=== PATIENT | female | born 1965 | race Caucasian/White ===

== ENCOUNTER 2024-05-10 12:47 | Outpatient (CLI) | payer BC, SELFPAY ==
--- OUTSIDE RECORDS SUMMARY | 2024-05-10 12:51 | XMS_ITS ---
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 6-10 How soon after you wake up do you smoke your fir st cigarette? 6-30 minutes Encounters Encounter Location Date Provider Diagnosis [facility] [address] [place] [address] 05/06/2024 Zenon Sharif Menopausal and femal e climacteric states N95.1 ; Sleeping difficulties G47.9 ; Tobacco use Z72.0 and Brain fog R41.89 Assessments Encounter Date Diagnosis (ICD Code) Assessment Notes Treatment Notes Treatment Clinical Notes 05/06/2024 Menopausal and female climacteric states (ICD-10 - N95.1) -HRT labs reviewed in detail today. Results consistent with postmenopause and suboptimal/low testosterone -Discussed treatment options in detail including oral estradiol, oral progesterone, Bijuva (oral estradiol/progesterone pill), transdermal estradiol patches, transdermal compounded testosterone cream, or estradiol/testosterone pellet preparations use of each therapy, common and rare side effects, possible benefits, frequency of use, and cost of each. Would advise against oral estradiol preparations due to pt. age and current tobacco use -At this time desires to start estradiol patches and progesterone for endometrial protection once she completes mammogram next week. We discussed if results are negative/benign can send in Rx for estradiol twice weekly patche 0.0375mg/24hr twice weekly and progesterone 100mg PO caps nightlyat HS. Prefers to hold off on testosterone -Plan for follow up in 4-6 weeks for labs and HRT follow up visit once she starts therapies. Will send Rx as above once I have received and reviewed mammogram 05/06/2024 Sleeping difficulties (ICD-10 - G47.9) 05/06/2024 Tobacco use (ICD-10 - Z72.0) 05/06/2024 Brain fog (ICD-10 - R41.89) 05/06/2024 Other This visit was conducted with the use of audio telecommunications system that permits real time communication between the patient and provider. Patient consent for telephone visit was obtained. Full name and verified at start of call. Originating site: [facility] location Distant site: pt home Start time: 1515 Stop time: 1527 22 min. of time spent in chart prep, reviewing lab results, discussing HRT options and providing counseling on therapies desired, writing orders, and documenting visit note Plan Of Treatment Treatment Notes Assessment Notes Menopausal and female climac teric states -HRT labs reviewed in detail today. Results consistent with postmenopause and suboptimal/low testosterone -Discussed treatment options in detail including oral estradiol, oral progesterone, Bijuva (oral estradiol/progesterone pill), transdermal estradiol patches, transdermal compounded testosterone cream, or estradiol/testosterone pellet preparations use of each therapy, common and rare side effects, possible benefits, frequency of use, and cost of each. Would advise against oral estradiol preparations due to pt. age and current tobacco use -At this time desires to start estradiol patches and progesterone for endometrial protection once she completes mammogram next week. We discussed if results are negative/benign can send in Rx for estradiol twice weekly patche 0.0375mg/24hr twice weekly and progesterone 100mg PO caps nightlyat HS. Prefers to hold off on testosterone -Plan for follow up in 4-6 weeks for labs and HRT follow up visit once she starts therapies. Will send Rx as above once I have received and reviewed mammogram Other This visit was conducted with the use of audio telecommunications system that permits real time communication between the patient and provider. Patient consent for telephone visit was obtained. Full name and verified at start of call. Originating site: [facility] location Distant site: pt home Start time: 1515 Stop time: 1527 22 min. of time spent in chart prep, reviewing lab results, discussing HRT options and providing counseling on therapies desired, writing orders, and documenting visit note Next Appt Details Follow Up: 6 Weeks, Reason: Progress Notes * Debra LIMA ADOB:[birth year] (58 yo F)Acc No.[id number]:05/06/2024 Patient:?Debra LIMA Provider:?RAOUL Dc :1965???Age:58 Y???Sex:Female D ate:05/06/2024 Address:[facility] [address] Pcp:No PCP None Subjective: * Chief Complaints: * ???1. HRT lab f/u from 04/28, needs updated mammo. 2. 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 3. * lm with televisit instructions. * HPI: ???General:? Patient presents today for a telemedicine visit. Patient gives permission to be treated with (tele/audio communication) or (by telephone.). ???*General:? Debra is a 58 year old female here for a HRT consult today. Primary symptoms/complaints include night sweats and sleep difficulties, weight gain, difficulty concentrating/memory loss, decreased energy, foggy thinking, muscle and joint pain. PMH reviewed, notable for tobacco use daily. Did do pellet HRT including estradiol and testosterone x 3 doses in 2021. Stopped due to out of pocket costs. Did get improvement.? LMP: age 43, no vaginal bleeding since menopause UTERUS is PRESENT: Last Pap smear date:?01/01/2017 Last Mammogram date:2008, last found in [facility] Tobacco use:yes, 1/2 ppd of cigarettes PERSONAL HISTORY of DVT, NE, STROKE, LIVER DYSFUNCTION, OR BREAST CANCER: no FAMILY HISTORY OF BREAST CANCER: sister at age 65, maternal grandmother at age 80 FAMILY HISTORY OF DVT OR CVA/NE BEFORE AGE 50: no. * ROS:?All Other Systems:?Review of Systems (ROS)?See HPI for details.? * Medical History:?Tobacco use , Hemorrhoids, Inflammatory polyarthropathy. * Health Program Manager History:?Date of Last Period:?Menopause.? Control: ?Menopause.?Sexual Activity?Currently sexually active.?Sexually Tranmitted Disease (STD)?None.?Denies H/O Abnormal Pap Smear.? * OB History:?GPAL:?.? # 1:?1985, normal spontaneous vaginal delivery (), Male.? # 2:?1986, normal spontaneous vaginal delivery (), Female.? # 3:?1990, normal spontaneous vaginal delivery (), Male.? # 4:?1993, normal spontaneous vaginal delivery (), female.? * Surgical History:?Denies Pas t Surgical History. * Hospitalization/Major Diagno stic Procedure:?Denies Past Hospitalization. * Family History:? Breast cancer- sister and grandmother Diabetes- mother. * Social History:?Tobacco Use:?Tobacco Control (Standard)?Tobacco use:?Current smoker ?How many cigarettes a day do you smoke??6-10 ?How soon after you wake up do you smoke your first cigarette??6-30 minutes ???Drugs/Alcohol:?Drugs?Have you used drugs other than those for medical reasons in the past 12 months??No ?Caffeine?Intake:?1-2 cups per day ???Miscellaneous:?Exercise: yes. * Medications:?None * Allergies:?N.K.D.A. Objective: * Vitals:? * ???Past Orders: ???Lab:ESTRADIOL (Order Date - 04/28/2024) (Collection Date & Time - 04/28/2024 10:12 AM) ? Value Reference Range ?ESTRADIOL <15 - pg/mL ???Lab:FSH (Order Date 04/2024) (Collection Date & Time - 04/28/2024 10:12 AM) ? Value Reference Range ?FSH 66.5 - mIU/mL ???Lab:LH (Order Date 04/2024) (Collection Date & Time - 04/28/2024 10:12 AM) ? Value Reference Range ?LH 35.3 - mIU/mL ???Lab:SEX HORMONE BINDING G LOBULIN (Order Date 04/28/2024) (Collection Date & Time - 04/28/2024 10:12 AM) ? Value Reference Range ?SEX HORMONE BINDING 70 14-73 - nmol/L ???Lab:TESTOSTERONE, TOTAL, LC/MS/MS (Order Date 04/28/2024) (Collection Date & Time - 04/28/2024 10:12 AM) ? Value Reference Range ?TESTOSTERONE, TOTAL, 33 2-45 - ng/dL ???Lab:TESTOSTERONE, FREE (O rder Date 04/28/2024) (Collection Date & Time - 04/28/2024 10:12 AM) ? Value Reference Range ?TESTOSTERONE, FREE 1.7 0 .2-5.0 - pg/mL * Examination: ???*General Examination: ?GENERAL APPEARANCE:?in no acute distress, well developed, well nourished.?PSYCH:? alert, oriented, judgement and insight good.? Assessment: * Assessment: 1.?Menopausal and female cli macteric states - N95.1 (Primary)???2.?Sleeping difficulties - G47.9???3.?Tobacco use - Z72.0???4.?Brain fog - R41.89??? Plan: * Treatment: 2.?Others? Notes: This visit was conducted with the use of audio telecommunications system that permits real time communication between the patient and provider. Patient consent for telephone visit was obtained. Full name and verified at start of call. Originating site: [facility] location Distant site: pt home Start time: 1515 Stop time: 1527 22 min. of time spent in chart prep, reviewing lab results, discussing HRT options and providing counseling on therapies desired, writing orders, and documenting visit note?? * Preventive Medicine:? ??YOUR PREVENTIVE WELLNESS PLAN:?Breast Cancer Screening (Mammogram):?My last mammogram was done on:?05/29/2015 ?Cervical Cancer Screening (Pap Smear):?My last Pap smear was done on:?09/21/2016 ?Osteoporosis Screening (Bone Density Measurement):?My last bone density was done on:?Never, Under 65yr ?Colorectal Cancer Screening:?Last Done Colonoscopy?Never * Follow Up:?6 Weeks * Images: Billing Information: * Visit Code:? 58970 Office Visit, Est Pt., Level 3. Modifiers: 95 * Procedure Codes:? * Sign off status: Completed true * Provider:?RAOUL Dc Date:?04/21 Generated for Eduardo leroy/Naya/Esa on:?05/10/2024 12:51 PM CDT History and Physical Notes * Examination Category Sub-Category Detail Notes *General Examination GENERAL APPEARANCE: in no a cute distress, well developed, well nourished PSYCH: alert, oriented, nena gement and insight good
--- OUTSIDE RECORDS SUMMARY | 2024-05-10 12:52 | XMS_ITS ---
Author Organization [facility] Address [address] [place] [address] Care Team Providers Care Paver Layer Name Role Phone None, No PCP Primary Care Provider Zenon Huggins Unavailable [phone] Allergies No Known Allergies Results Component Value Reference Range Notes ESTRADIOL Reviewed date:05/02/2024 02:55:13 PM Interpretation: Performing Lab:[facility] [address] [facility] CountyMatthew[place]ouzKH[address] Junior Cesar Notes/Report: ESTRADIOL <15 Reference Range Follicular Phase: 19-144 Mid-Cycle: 64-357 Luteal Phase: 56-214 Postmenopausal: < or = 31 Reference range established on post-pubertal patient population. No pre-pubertal reference range established using this assay. For any patients for whom low Estradiol levels are anticipated (e.g. males, pre-pubertal children and hypogonadal/post-menopausal females), the [facility] Estradiol, Ultrasensitive, LCMSMS assay is recommended (order code 13004). Please note: patients being treated with the drug fulvestrant (Faslodex(R)) have demonstrated significant interference in immunoassay methods for estradiol measurement. The cross reactivity could lead to falsely elevated estradiol test results leading to an inappropriate clinical assessment of estrogen status. [facility] order code 24784-Kagbxuuto, Ultrasensitive LC/MS/MS demonstrates negligible cross reactivity with fulvestrant. FSH Reviewed date:05/02/2024 02:55:13 PM Interpretation: Performing Lab:[facility] [address], Matthew AkinsHhjfMG[address] Junior Cesar Notes/Report: FSH 66.5 Reference Range Follicular Phase 2.5-10.2 Mid-cycle Peak 3.1-17.7 Luteal Phase 1.5- 9.1 Postmenopausal 23.0-116.3 LH Reviewed date:05/02/2024 02:55:13 PM Interpretation: Performing Lab:CB, [facility] [address], Matthew AkinsLsupJG[address] Junior Cesar Notes/Report: LH 35.3 Reference Range Follicular Phase 1.9-12.5 Mid-Cycle Peak 8.7-76.3 Luteal Phase 0.5-16.9 Postmenopausal 10.0-54.7 SEX HORMONE BINDING GLOBULIN Reviewed date:05/02/2024 02:55:13 PM Interpretation: Performing Lab:CB, [facility] [address], Matthew CollazoEzrvDN[address] Junior Cesar Notes/Report: SEX HORMONE BINDING GLOBULIN 70 14-73 nmol/L TESTOSTERONE, TOTAL, LC/MS/M S Reviewed date:05/02/2024 02:55:13 PM Interpretation: Performing Lab:[facility], TORCH.sh-[address] [place] [address], [address]TX[address] Jordy Rust MD,PhD Notes/Report: TESTOSTERONE, TOTAL, MS 33 2-45 ng/dL not been cleared or approved by the FDA. This assay has been validated pursuant to the CLIA regulations and is used for clinical purposes. [facility] med fusion [address] [address],[address] [facility] [address] Jordy Rust MD, PhD For additional information, please refer to [email or web address] (This link is being provided for informational/educational purposes only.) (Note) This test was developed and its analytical performance characteristics have been determined by [employer]. 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 Social History Tobacco Use: Social History Observation Description Date Details (start date - stop date) Current Smoker NA - NA Tobacco Control (Standard) Question Answer Notes Tobacco use: Current smoker How many cigarettes a day do you smoke? 6-10 How soon after you wake up do you smoke your fir st cigarette? 6-30 minutes AUDIT-C (Standard) Question Answer Notes Did you have a drink contain ing alcohol in the past year? Yes How often did you have six o r more drinks on one occasion in the past year? 2 to 3 times per week (3 points) How many drinks did you have on a typical day when you were drinking in the past year? 3 or 4 drinks (1 point) How often did you have a dri nk containing alcohol in the past year? Never (0 point) Points 4 Interpretation Positive Problems Problem Type SNOMED Code ICD Code Onset Dates Problem Status W/U Status Risk Notes Problem 70716607 Menopausal symptoms (N95.1) Active confirmed Problem 629406903 Sleeping difficulties (G47.9) Active confirmed Vital Signs Height 67 in 04/28/2024 Weight 171.4 lbs 04/28/2024 Blood pressure systolic 138 mm Hg 04/28/20 24 Blood pressure diastolic 78 mm Hg 024 BMI 26.84 kg/m2 04/28/2024 Encounters Encounter Location Date Provider Diagnosis [facility] [address] [place] [address] 04/28/2024 Zenon Sharif Menopausal symptoms N95.1 ; Sleeping difficulties G47.9 ; Tobacco use Z72.0 ; Other fatigue R53.83 ; Brain fog R41.89 ; Generalized joint pain M25.50 and Menopausal and female climacteric states N95.1 Assessments Encounter Date Diagnosis (ICD Code) Assessment Notes Treatment Notes Treatment Clinical Notes 04/28/2024 Menopausal symptoms (ICD-10 - N95.1) Estradiol replacement in bio-identical forms include: -Transdermal patches which are applied twice weekly to lower abdomen, hip, upper buttocks, arm or shoulder. Patches should never be applied to breast tissue. Apply to clean dry skin and alternate sites every 3 days (twice weekly) -Counseled on application of estradiol patches to clean dry skin. Can apply to lower abdomen, underwear line, or arms/shoulders. Avoid application to breast tissue. Cautioned on possible side effects of therapy including skin irritation, breast tenderness and vaginal bleeding in women with a uterus. Recommend replacement of new patch if patch falls off before replacement is due. Progesterone replacement in bio-identical forms include: -Oral capsules mixed in peanut oil taken once daily at bedtime -Common side effects can be drowsiness which is why it is recommended to take right at bedtime -Indicated to protect thickening of lining of the uterus in women who have a uterus. It is very important that this is taken every night to avoid vaginal bleeding -Counseled on need for progesterone therapy with the initiation of estradiol replacement in women who have a uterus for endometrial protection to reduce the risk for vaginal bleeding and developement of abnormalities of the uterine lining. We discussed the importance of consistent daily dosing and to avoid missing/skipping doses to avoid bleeding and endometrial thickening. Common side effects including drowsiness and mood changes (improved vs. worsening mood) discussed. No allergies/sensitivi ties to peanuts reported. Recommend taking therapy at bedtime to accommodate for common side effect of drowsiness Testosterone replacement in bio-identical forms include: -Transdermal compounded cream that is applied to the skin once daily. Can be applied to the back of each knee, inner thigh, or upper inner arm. Avoid placement on breast tissue. Therapy absorbs over a few hours after application so ideally is applied after bathing so it isn't washed off. Localized hair growth and skin irritation where cream is applied are the most common side effects. -Counseled on application of testosterone cream: You will start transdermal compounded testosterone cream 4mg/0.5gm/2clicks/d ay. A 2 month faxed to [facility] -Apply testosterone cream in AM (morning) -Preferred application to back of knee(s). 1 click behind each knee. -Avoid contact with others to area cream was applied for at least 4 hours after application to prevent transmission of therapy to others -Wash hands after application and store cream is safe place away from young children -Common possible side effects of localized hair growth, skin irritation, possible agitation/irritabil ity can occur with initiation of therapy. If Agitation/irritabil ity occur, I advise decreasing dose in half (1 click) or discontinue if symptoms are severe and notify clinic. -Recommend rechecking testosterone level in 4-6 weeks with Televisit 1 week after labs are done for follow up. Sooner if any concerns before then. -Plan lab draw in PM (afternoon) and make sure cream has been applied that morning of labs to reflect dose of therapy you are using 04/28/2024 Sleeping difficulties (ICD-10 - G47.9) 04/28/2024 Tobacco use (ICD-10 - Z72.0) 04/28/2024 Other fatigue (ICD-10 - R53.83) 04/28/2024 Brain fog (ICD-10 - R41.89) 04/28/2024 Generalized joint pain (ICD-10 - M25.50) 04/28/2024 Menopausal and female climacteric states (ICD-10 - N95.1) 04/28/2024 Other -HRT Labs drawn today. Reasoning for labs discussed in detail -HRT options reviewed in detail, including oral estradiol, oral progesterone, Bijuva (oral estradiol/progester one pill), transdermal estradiol patches, transdermal compounded testosterone cream, or estradiol/testoster one pellet preparations risks/benefits, common side effects, costs and dosing schedule. Would advise against oral estradiol with age and tobacco use and associated increased risk for VTE/CVA/VA. -Counseled on the differences between FDA approved bio-identical hormone replacement, FDA non-hormonal therpies approved for symptoms of menopause, OTC supplements, and non-FDA approved compounded bio-idential hormone replacement. -Patient education and informed consent in HRT packet completed and signed today. -Counseled on associated increased risks for VA, CVA, VTE, and breast cancer with some forms of hormone replacement therapy. HRT could decrease associated lifetime risks, specifically with the use of bioidentical hormones including estradiol, progesterone, and/or testosterone preparations. Bioidentical hormonal therapies have not been shown to significantly increase risks for VA, CVA, VTE, and/or breast cancer, but do not guarantee prevention of developing these risks if used. senior care associated risks of non-FDA approved bioidential compounded hormones are not known. Copies given of signed forms. -Discussed potential side effects of pellet therapy including fluid retention, swelling, breast tenderness, nipple sensitivity, uterine spotting, mood swings and irritability, acne, hair loss and/or hair growth. -Breast cancer screening policy reviewed and printed handout given. Mammogram NEEDS TO BE UPDATED AND NEGATIVE/BENIGN BEFORE HRT WILL BE RECOMMNEDED. HAS ONLY HAD 1 AT [facility] IN 2008. PLANS TO GO BACK TO [facility] FOR REPEAT MAMMO BEFORE FOLLOW UP IF ABLE -Annual mammogram, clinical breast exam and JOB LITHOGRAPHER exams recommended -Plan for follow-up in 1-2 weeks to review lab results and proceed with treatment options if desired and indicated -Total of 30 minutes was spent reviewing history, concerns, evaluation, and management options in detail Plan Of Treatment Treatment Notes Assessment Notes Menopausal symptoms Estradiol replacement in bio-identical forms include: -Transdermal patches which are applied twice weekly to lower abdomen, hip, upper buttocks, arm or shoulder. Patches should never be applied to breast tissue. Apply to clean dry skin and alternate sites every 3 days (twice weekly) -Counseled on application of estradiol patches to clean dry skin. Can apply to lower abdomen, underwear line, or arms/shoulders. Avoid application to breast tissue. Cautioned on possible side effects of therapy including skin irritation, breast tenderness and vaginal bleeding in women with a uterus. Recommend replacement of new patch if patch falls off before replacement is due. Progesterone replacement in bio-identical forms include: -Oral capsules mixed in peanut oil taken once daily at bedtime -Common side effects can be drowsiness which is why it is recommended to take right at bedtime -Indicated to protect thickening of lining of the uterus in women who have a uterus. It is very important that this is taken every night to avoid vaginal bleeding -Counseled on need for progesterone therapy with the initiation of estradiol replacement in women who have a uterus for endometrial protection to reduce the risk for vaginal bleeding and developement of abnormalities of the uterine lining. We discussed the importance of consistent daily dosing and to avoid missing/skipping doses to avoid bleeding and endometrial thickening. Common side effects including drowsiness and mood changes (improved vs. worsening mood) discussed. No allergies/sensitivities to peanuts reported. Recommend taking therapy at bedtime to accommodate for common side effect of drowsiness Testosterone replacement in bio-identical forms include: -Transdermal compounded cream that is applied to the skin once daily. Can be applied to the back of each knee, inner thigh, or upper inner arm. Avoid placement on breast tissue. Therapy absorbs over a few hours after application so ideally is applied after bathing so it isn't washed off. Localized hair growth and skin irritation where cream is applied are the most common side effects. -Counseled on application of testosterone cream: You will start transdermal compounded testosterone cream 4mg/0.5gm/2clicks/day. A 2 month faxed to [facility] -Apply testosterone cream in AM (morning) -Preferred application to back of knee(s). 1 click behind each knee. -Avoid contact with others to area cream was applied for at least 4 hours after application to prevent transmission of therapy to others -Wash hands after application and store cream is safe place away from young children -Common possible side effects of localized hair growth, skin irritation, possible agitation/irritability can occur with initiation of therapy. If Agitation/irritability occur, I advise decreasing dose in half (1 click) or discontinue if symptoms are severe and notify clinic. -Recommend rechecking testosterone level in 4-6 weeks with Televisit 1 week after labs are done for follow up. Sooner if any concerns before then. -Plan lab draw in PM (afternoon) and make sure cream has been applied that morning of labs to reflect dose of therapy you are using Other -HRT Labs drawn today. Reasoning for labs discussed in detail -HRT options reviewed in detail, including oral estradiol, oral progesterone, Bijuva (oral estradiol/progesterone pill), transdermal estradiol patches, transdermal compounded testosterone cream, or estradiol/testosterone pellet preparations risks/benefits, common side effects, costs and dosing schedule. Would advise against oral estradiol with age and tobacco use and associated increased risk for VTE/CVA/VA. -Counseled on the differences between FDA approved bio-identical hormone replacement, FDA non-hormonal therpies approved for symptoms of menopause, OTC supplements, and non-FDA approved compounded bio-idential hormone replacement. -Patient education and informed consent in HRT packet completed and signed today. -Counseled on associated increased risks for VA, CVA, VTE, and breast cancer with some forms of hormone replacement therapy. HRT could decrease associated lifetime risks, specifically with the use of bioidentical hormones including estradiol, progesterone, and/or testosterone preparations. Bioidentical hormonal therapies have not been shown to significantly increase risks for VA, CVA, VTE, and/or breast cancer, but do not guarantee prevention of developing these risks if used. oysterman associated risks of non-FDA approved bioidential compounded hormones are not known. Copies given of signed forms. -Discussed potential side effects of pellet therapy including fluid retention, swelling, breast tenderness, nipple sensitivity, uterine spotting, mood swings and irritability, acne, hair loss and/or hair growth. -Breast cancer screening policy reviewed and printed handout given. Mammogram NEEDS TO BE UPDATED AND NEGATIVE/BENIGN BEFORE HRT WILL BE RECOMMNEDED. HAS ONLY HAD 1 AT [facility] IN 2008. PLANS TO GO BACK TO [facility] FOR REPEAT MAMMO BEFORE FOLLOW UP IF ABLE -Annual mammogram, clinical breast exam and JOB LITHOGRAPHER exams recommended -Plan for follow-up in 1-2 weeks to review lab results and proceed with treatment options if desired and indicated -Total of 30 minutes was spent reviewing history, concerns, evaluation, and management options in detail Next Appt Details Follow Up: 1 Week, Reason: Progress Notes * Debra LIMA ADOB:[birth year] (58 yo F)Acc No.[id number]:04/28/2024 Patient:?Debra LIMA Provider:?RAOUL Dc :1965???Age:58 Y???Sex:Female D ate:04/28/2024 Address:[facility] [address] Pcp:No PCP None Subjective: * Chief Complaints: * ???1. HORMONES /CONSULT. 2. LMP: menopause. 3. MAMMO: 2015. 4. SX: sweating, hot flashes, not sleeping, energy level is good. 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 6. * Lm to come in early for ppwk.. * HPI: ???Depression Screening:?PHQ-9?Little interest or pleasure in doing things?More than half the days ?Feeling down, depressed, or hopeless?Not at all ?Trouble falling or staying asleep, or sleeping too much?Nearly every day ?Feeling tired or having little energy?More than half the days ?Poor appetite or overeating?Not at all ?Feeling bad about yourself or that you are a failure, or have let yourself or your family down?Not at all ?Trouble concentrating on things, such as reading the newspaper or watching television?Not at all ?Moving or speaking so slowly that other people could have noticed; or the opposite, being so fidgety or restless that you have been moving around a lot more than usual?Not at all ?Thoughts that you would be better off or of hurting yourself in some way?Not at all ?Total Score?7 ?Interpretation?Mild Depression ???*General:? Debra is a 58 year old [...] date:?01/01/2017 Last Mammogram date:2008, last [facility] in [facility] Tobacco use:yes, 1/2 ppd of cigarettes PERSONAL HISTORY of DVT, VA, STROKE, LIVER DYSFUNCTION, OR BREAST CANCER: no FAMILY HISTORY OF BREAST CANCER: sister at age 65, maternal grandmother at age 80 FAMILY HISTORY OF DVT OR CVA/VA BEFORE AGE 50: no. * ROS:?All Other Systems:?Review of Systems (ROS)?See HPI for details.? * Medical History:?Tobacco use , Hemorrhoids, Inflammatory polyarthropathy. 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 Control: ?Menopause.?Sexual Activity?Currently [...] months??No ?Caffeine?Intake:?1-2 cups per day ???Miscellaneous:?Exercise: yes. ???Drug/Alcohol:?AUDIT-C (Standard)?Did you have a drink containing alcohol in the past year??Yes ?How often did you have six or more drinks on one occasion in the past year??2 to 3 times per week (3 points) ?How many drinks did you have on a typical day when you were drinking in the past year??3 or 4 drinks (1 point) ?How often did you have a drink containing alcohol in the past year??Never (0 point) ?Points?4 ?Interpretation?Positive * Medications:?None * Allergies:?N.K.D.A. Objective: * Vitals:?Ht: 67 in, Wt:171.4l bs, BP:138/78mm Hg, BMI:26.84Index. * Examination: ???*General Examination: ?GENERAL APPEARANCE:?in no acute distress, well developed, well nourished.?PSYCH:?alert, oriented, judgement and insight good, mood/affect full range, speech clear.? Assessment: * Assessment: 1.?Menopausal symptoms - N95 .1 (Primary)???2.?Sleeping difficulties - G47.9???3.?Tobacco use - Z72.0???4.?Other fatigue - R53.83???5.?Brain fog - R41.89???6.?Generalized joint pain - M25.50???7.?Menopausal and female climacteric states - N95.1??? Plan: * Treatment: 2.?Menopausal and female cli macteric states?LAB: ESTRADIOL ? Value Reference Range ?ESTRADIOL <15 - pg/mL * Here are your lab results fo r your upcoming visit. See you then. Zenon Sharif 05/02/2024 02:55:09 PM CDT >This lab was reviewed by Zenon Sharif on 05/02/2024 at 14:55 PM CDT ?LAB: FSH* ? Value Reference Range ?FSH 66.5 - mIU/mL * Here are your lab results fo r your upcoming visit. See you then. Zenon Sharif 05/02/2024 02:55:09 PM CDT >This lab was reviewed by Zenon Sharif on 05/02/2024 at 14:55 PM CDT ?LAB: LH* ? Value Reference Range ?LH 35.3 - mIU/mL * Here are your lab results fo r your upcoming visit. See you then. Zenon Sharif 05/02/2024 02:55:09 PM CDT >This lab was reviewed by Zenon Sharif on 05/02/2024 at 14:55 PM CDT ?LAB: SEX HORMONE BINDING GLOBULIN* ? Value Reference Range ?SEX HORMONE BINDING 70 14- 73 - nmol/L * Here are your lab results fo r your upcoming visit. See you then. Zenon Sharif 05/02/2024 02:55:09 PM CDT >This lab was reviewed by Zenon Sharif on 05/02/2024 at 14:55 PM CDT ?LAB: TESTOSTERONE, TOTAL, LC/MS/MS* ? Value Reference Range ?TESTOSTERONE, TOTAL, 33 2- 45 - ng/dL * Here are your lab results fo r your upcoming visit. See you then. Zenon Sharif 05/02/2024 02:55:09 PM CDT >This lab was reviewed by Zenon Sharif on 05/02/2024 at 14:55 PM CDT ?LAB: TESTOSTERONE, FREE* ? Value Reference Range ?TESTOSTERONE, FREE 1.7 0.2- 5.0 - pg/mL * Here are your lab results fo r your upcoming visit. See you then. Zenon Sharif 05/02/2024 02:55:09 PM CDT >This lab was reviewed by Zenon Sharif on 05/02/2024 at 14:55 PM CDT 3.?Others? Notes: -HRT Labs drawn today. Reasoning for labs discussed in detail -HRT options reviewed in detail, including oral estradiol, oral progesterone, Bijuva (oral estradiol/progesterone pill), transdermal estradiol patches, transdermal compounded testosterone cream, or estradiol/testosterone pellet preparations risks/benefits, common side effects, costs and dosing schedule. Would advise against oral estradiol with age and tobacco use and associated increased risk for VTE/CVA/VA. -Counseled on the differences between FDA approved bio-identical hormone replacement, FDA non-hormonal therpies approved for symptoms of menopause, OTC supplements, and non-FDA approved compounded bio-idential hormone replacement. -Patient education and informed consent in HRT packet completed and signed today. -Counseled on associated increased risks for VA, CVA, VTE, and breast cancer with some forms of hormone replacement therapy. HRT could decrease associated lifetime risks, specifically with the use ofbioidentical hormones including estradiol, progesterone, and/or testosterone preparations. Bioidentical hormonal therapies have not been shown to significantly increase risks for VA, CVA, VTE, and/orbreast cancer, but do not guarantee prevention of developing these risks if used. oysterman associated risks of non-FDA approved bioidential compounded hormones are not known. Copies given of signed forms. -Discussed potential side effects of pellet therapy including fluid retention, swelling, breast tenderness, nipple sensitivity, uterine spotting, mood swings and irritability, acne, hair loss and/or hair growth. -Breast cancer screening policy reviewed and printed handout given. Mammogram NEEDS TO BE UPDATED AND NEGATIVE/BENIGN BEFORE HRT WILL BE RECOMMNEDED. HAS ONLY HAD 1 AT [facility] IN 2008. PLANS TO GO BACK TO [facility] FOR REPEAT MAMMO BEFORE FOLLOW UP IF ABLE -Annual mammogram, clinical breast exam and JOB LITHOGRAPHER exams recommended -Plan for follow-up in 1-2 weeks to review lab results and proceed with treatment options if desired and indicated -Total of 30 minutes was spent reviewing history, concerns, evaluation, and management options in detail?? * Procedure Codes:?05109 BRIEF EMOTIONAL/BEHAV ASSMT, 79693 ASSAY OF ESTRADIOL, Modifiers: 90 , 53975 GONADOTROPIN (FSH), Modifiers: 90 , 14283 GONADOTROPIN (LH), Modifiers: 90 , 10762 ASSAY OF SEX HORMONE GLOBUL, Modifiers: 90 , 13210 ASSAY OF TESTOSTERONE, Modifiers: 90 , 51337 ASSAY OF TOTAL TESTOSTERONE, Modifiers: 90 , 83154 VENIPUNCT, ROUTINE* * Preventive Medicine:? ??YOUR PREVENTIVE WELLNESS PLAN:?Breast Cancer Screening (Mammogram):?My last mammogram was done on:?05/29/2015 ?Cervical Cancer Screening (Pap Smear):?My last Pap smear was done on:?09/21/2016 ?Osteoporosis Screening (Bone Density Measurement):?My last bone density was done on:?Never, Under 65yr ?Colorectal Cancer Screening:?Last Done Colonoscopy?Never * Follow Up:?1 Week * Images: Billing Information: * Visit Code:? 82732 Office Visit, New Pt., Level 3. * Procedure Codes:? 13628 BRIEF EMOTIONAL/BEHAV ASSMT. 56775 ASSAY OF ESTRADIOL. Modifiers: 90 32643 GONADOTROPIN (FSH). Modifiers: 90 40399 GONADOTROPIN (LH). Modifiers: 90 53387 ASSAY OF SEX HORMONE GLOBUL. Modifiers: 90 65100 ASSAY OF TESTOSTERONE. Modifiers: 90 65325 ASSAY OF TOTAL TESTOSTERONE. Modifiers: 90 86071 VENIPUNCT, ROUTINE*. * Sign off status: Completed Addendum: * ? true * Provider:?RAOUL Dc Date:?04/2024 Generated for Eduardo leroy/Naya/Esa on:?05/10/2024 12:51 PM CDT History and Physical Notes * HPI (History of Present Illness) Category Sub-Category Detail Notes Depression Screening PHQ-9 Little inte rest or pleasure in doing things: More than half the days Feeling down, depressed, or hopeless: No t at all Trouble falling or staying asleep, or sl eeping too much: Nearly every day Feeling tired or having little energy: M ore than half the days Poor appetite or overeating: Not at all Feeling bad about yourself o r that you are a failure, or have let yourself or your family down: Not at all Trouble concentrating on thi ngs, such as reading the newspaper or watching television: Not at all Moving or speaking so slowly that other people could have noticed; or the opposite, being so fidgety or restless that you have been moving around a lot more than usual: Not at all Thoughts that you would be b faheem off or of hurting yourself in some way: Not at all Total Score: 7 Interpretation: Mild Depression Examination Category Sub-Category Detail Notes *General Examination GENERAL APPEARANCE: in no a cute distress, well developed, well nourished PSYCH: alert, oriented, nena gement and insight good, mood/affect full range, speech clear
--- OUTSIDE RECORDS SUMMARY | 2024-05-10 12:52 | XMS_ITS ---
Author Organization [facility] Address [address] [place] [address] Care Team Providers Care Cake Inspector Name Role Phone None, No PCP Primary Care Provider Zenon Huggins [phone] Encounters Encounter Location Date Provider Diagnosis [facility] [address] [place] [address] 04/28/2024 Zenon Sharif Plan Of Treatment No Information Progress Notes * Debra LIMA ADOB:[birth year] (58 yo F)Acc No.[id number]:04/28/2024 Patient:?SIDNEY Debra Perales Provider:?RAOUL Dc :1965???Age:58 Y???Sex:Female D ate:04/28/2024 Address:[address], [address], [facility] Pcp:No PCP None Subjective: * Chief Complaints: * ??? * Medical History:? Objective: * Vitals:? Assessment: Plan: * Treatment: Care Plan: * Problems:? * Images: Billing Information: * Visit Code:? * Procedure Codes:? * Electronic signature of Nadya Sharif on 05/10/2024 at 12:51 PM CDT Sign off status: Pending * Provider:?RAOUL Dc Date:?04/2024 Generated for Eduardo leroy/Naya/Esa on:?05/10/2024 12:51 PM CDT
--- OUTSIDE RECORDS SUMMARY | 2024-05-10 12:52 | XMS_ITS | Patient Health Record ---
Author Organization [facility] Address [address] [place] [address] Care Team Providers Care Director Of Religious Activities Name Role Phone None, No PCP Primary Care Provider Zenon Huggins Unavailable [phone] Allergies No Known Allergies Results Component Value Reference Range Notes ESTRADIOL Reviewed date:05/02/2024 02:55:13 PM Interpretation: Performing Lab:[facility] [employer] [address] branchFlwrJN[address] Junior Cesar Notes/Report: ESTRADIOL <15 Reference Range Follicular Phase: 19-144 Mid-Cycle: 64-357 Luteal Phase: 56-214 Postmenopausal: < or = 31 Reference range established on post-pubertal patient population. No pre-pubertal reference range established using this assay. For any patients for whom low Estradiol levels are anticipated (e.g. males, pre-pubertal children and hypogonadal/post-menopausal females), the [facility] Estradiol, Ultrasensitive, LCMSMS assay is recommended (order code 12316). Please note: patients being treated with the drug fulvestrant (Faslodex(R)) have demonstrated significant interference in immunoassay methods for estradiol measurement. The cross reactivity could lead to falsely elevated estradiol test results leading to an inappropriate clinical assessment of estrogen status. [facility] order code 12156-Obccvsfwk, Ultrasensitive LC/MS/MS demonstrates negligible cross reactivity with fulvestrant. FSH Reviewed date:05/02/2024 02:55:13 PM Interpretation: Performing Lab:[facility]-[address], Matthew CollazoPfyeDO[address] Junior Cesar Notes/Report: FSH 66.5 Reference Range Follicular Phase 2.5-10.2 Mid-cycle Peak 3.1-17.7 Luteal Phase 1.5- 9.1 Postmenopausal 23.0-116.3 LH Reviewed date:05/02/2024 02:55:13 PM Interpretation: Performing Lab:[facility], Matthew CollazoOjjpCK[address] Junior Cesar Notes/Report: LH 35.3 Reference Range Follicular Phase 1.9-12.5 Mid-Cycle Peak 8.7-76.3 Luteal Phase 0.5-16.9 Postmenopausal 10.0-54.7 SEX HORMONE BINDING GLOBULIN Reviewed date:05/02/2024 02:55:13 PM Interpretation: Performing Lab:[facility], Matthew CollazoQishMQ[address] Junior Cesar Notes/Report: SEX HORMONE BINDING GLOBULIN 70 14-73 nmol/L TESTOSTERONE, TOTAL, LC/MS/M S Reviewed date:05/02/2024 02:55:13 PM Interpretation: Performing Lab:[facility], [facility]-AdsStzdxp[address] [place] [address], [facility] [address], CihwdpcsfvCS[address] Jordy Rust MD,PhD Notes/Report: TESTOSTERONE, TOTAL, MS 33 2-45 ng/dL not been cleared or approved by the FDA. This assay has been validated pursuant to the CLIA regulations and is used for clinical purposes. [facility] med fusion [address] [address],[address] [facility] [address] Jordy Rust MD, PhD For additional information, please refer to [email or web address].[employer] .Star[employer] Interactive/faq/TotalTestosteroneLCMSMS (This link is being provided for informational/educational purposes only.) (Note) This test was developed and its analytical performance characteristics have been determined by [employer]. It has TESTOSTERONE, FREE Reviewed date:05/02/2024 02:55:13 PM Interpretation: Performing Lab:[facility], [facility]-[address] [address], [address], EgvbytdqhjKP[address] Jordy Rust MD,PhD Notes/Report: TESTOSTERONE, FREE 1.7 0.2-5.0 pg/mL MD med fusion [address] [facility] [address] [place] [address] Jordy Rust MD, PhD Reason For Referral No Information Social History Tobacco Use: Social History Observation Description Date Details (start date - stop date) Current Smoker NA - NA Tobacco Control (Standard) Question Answer Notes Tobacco use: Current smoker How many cigarettes a day do you smoke? 6-10 How soon after you wake up do you smoke your fir st cigarette? 6-30 minutes Problems Problem Type SNOMED Code ICD Code Onset Dates Problem Status W/U Status Risk Notes Problem 31691812 Menopausal symptoms (N95.1) Active confirmed Problem 161481697 Sleeping difficulties (G47.9) Active confirmed Vital Signs Blood pressure diastolic 78 mm Hg 04/28/2024 Height 67 in 04/28/2024 Blood pressure systolic 138 mm Hg 04/28/2024 Weight 171.4 lbs 04/28/2024 BMI 26.84 kg/m2 04/28/2024 Encounters Encounter Location Date Provider Diagnosis [address] [address] 04/28/2024 Zenon Sharif [facility] [address] [place] [address] 04/28/2024 Zenon Sharif Menopausal symptoms N95.1 ; Sleeping difficulties G47.9 ; Tobacco use Z72.0 ; Other fatigue R53.83 ; Brain fog R41.89 ; Generalized joint pain M25.50 and Menopausal and female climacteric states N95.[address] [address] 05/06/2024 Zenon Sharif Menopausal and femal e [...] cream 4mg/0.5gm/2clicks/day. A 2 month faxed to [facility] -Apply testosterone cream in AM (morning) [...] using 04/28/2024 Sleeping difficulties (ICD-10 - G47.9) 05/06/2024 Menopausal and female climacteric states (ICD-10 [...] mammogram 05/06/2024 Sleeping difficulties (ICD-10 - G47.9) 04/28/2024 Tobacco use (ICD-10 - Z72.0) 05/06/2024 Tobacco use (ICD-10 - Z72.0) 04/28/2024 Other fatigue (ICD-10 - R53.83) 05/06/2024 Brain fog (ICD-10 - R41.89) 04/28/2024 Brain fog (ICD-10 - R41.89) 04/28/2024 [...] tobacco use and associated increased risk for VTE/CVA/[place]. -Counseled on the differences between FDA approved bio-identical hormone replacement, FDA non-hormonal therpies approved for symptoms of menopause, OTC supplements, and non-FDA approved compounded bio-idential hormone replacement. -Patient education and informed consent in HRT packet completed and signed today. -Counseled on associated increased risks for [place], CVA, VTE, and breast cancer with some forms of hormone replacement therapy. HRT could decrease associated lifetime risks, specifically with the use of bioidentical hormones including estradiol, progesterone, and/or testosterone preparations. Bioidentical hormonal therapies have not been shown to significantly increase risks for [place], CVA, VTE, and/or breast cancer, but do not guarantee prevention of developing these risks if used. penitentiary associated risks of non-FDA approved bioidential compounded [...] BE RECOMMNEDED. HAS ONLY HAD 1 AT [facility] IN 2008. PLANS TO GO BACK TO [place] FOR REPEAT MAMMO BEFORE FOLLOW UP IF ABLE -Annual mammogram, clinical breast exam and GOLD PROSPECTOR exams recommended -Plan for follow-up in 1-2 weeks to review lab results and proceed with treatment options if desired and indicated -Total of 30 minutes was spent reviewing history, concerns, evaluation, and management options in detail 05/06/2024 Other This visit was conducted with the use of audio telecommunications system that permits real time communication between the patient and provider. Patient consent for telephone visit was obtained. Full name and verified at start of call. Originating site: [facility] location Distant site: home Start time: 1515 Stop time: 1527 22 min. of time spent in chart prep, reviewing lab results, discussing HRT options and providing counseling on therapies desired, writing orders, and documenting visit note Plan Of Treatment No Information Insurance Providers Payer Name Payer Address Payer Phone Subscriber Number Group Number Insured Name Patient Relationship to Insured Coverage Start Date Coverage End Date BCBS - (Client Bill) [address] [place] FUNEZ [id number] Derba Lima Self - patient is the insured Medical (General) History Medical History History ICD Code tobacco use hemorrhoids inflammatory polyarthropathy
--- NOTE | 2024-05-10 13:00 | CRLHL7_ITS ---
For Patients: As a result of the Century Cures Act, medical imaging exams and procedure reports are released immediately into your electronic medical record. You may view this report before your referring provider. If you have questions, please contact your health care provider. BILATERAL SCREENING MAMMOGRAM WITH COMPUTER-AIDED DETECTION AND TOMOSYNTHESIS TECHNIQUE: CC and MLO views were obtained. These mammographic images have been obtained using full-field digital technique. These mammographic images were interpreted with the benefit of computer-aided detection. Breast tomosynthesis was used in this interpretation. COMPARISON FILM: 01/06/17. FINDINGS: There are scattered areas of fibroglandular density. IMPRESSION: There is no radiographic evidence for malignancy. ASSESSMENT: BI-RADS Category 1: Negative RECOMMENDATION: Routine screening mammogram in 1 year. A lay language report of this examination will be provided to the patient. DIMA GARCIA M.D. Diagnostic Radiologist [email or web address] Transcribed: 3:[address]/Dictated by: Dima Garcia MD @ 05/11/2024 10:56:00 AM (Electronically Signed)
== END 2024-05-10 12:48 | disposition home or self-care (01) ==
PROVIDERS: PCP Nurse Practitioner; Visit Provider Nurse Practitioner
DX: Z12.31 Encounter for screening mammogram for malignant neoplasm of breast (principal)
CPT/HCPCS: 77063; 77067

== ENCOUNTER 2025-02-15 07:54 | Day surgery (SDC) | payer BC, SELFPAY ==
[2025-02-15] VITALS (17 sets, daily range): BP systolic 107–138; BP diastolic 62–86; PULSE 71–91; RESP 14–16; TEMP 35.9–36.6; O2SAT 92–98; BMI 28.3
[2025-02-15] MEDS: LACTATED RINGERS 1000 ML 1,000 ML 100 ML IV ×2 (08:45→11:15)
[2025-02-15] MEDS: SODIUM CHLORIDE 0.9 % (FLUSH) 10 ML SYRINGE IVF (08:45)
--- NOTE | 2025-02-15 09:02 | W.PM.H&PU ---
History & Physical Update History & Physical Update H&P Reviewed and patient assessed: No changes noted
[2025-02-15] MEDS: fentaNYL 100 MCG/2 ML inj IVP (09:38)
[2025-02-15] MEDS: MIDAZOLAM HCL 1 MG/ML inj IVP (09:38)
--- NOTE | 2025-02-15 09:45 | SUR.PREOP ---
TIME?OUT:?0936 PT/RN/MDA?VERIFICATION?OF?SURGICAL?SITE,?PROCEDURE,?AND?CONSENT OBTAINED?PRIOR?TO?INVASIVE?PROCEDURE.
--- NOTE | 2025-02-15 09:51 | P.NB_ITS ---
Nerve Block Nerve Block Time Seen by Provider: 09:42 Date Seen: 02/15/25 Type of block requested by surgeon for post-operative analgesia: supraclavicular Side: right Time out performed: Yes Verification of patient name: Yes Verification of date of : Yes Site marking: site marked Name of person performing procedure: Zay Continuous monitoring Was continuous monitoring of O2 sat, B/P, monitor car operator, recorded every 15 minutes?: Yes Procedure Checklist: sterile prep, needles and gloves Ultrasound guided. Images saved: Yes Medications given in 5ml increments after negative aspiration: Ropivicaine %: 0.5 mL: 20 Needle gauge: 22 Precedex (mcg): 25 Patient tolerated procedure well: Yes Block Charges Block Charge (with Pro Fee): Brachial Plexus Use of Ultrasound Machine for Block: Yes- US Guidance/pain block
--- NOTE | 2025-02-15 09:52 | W.ANESCHARGE ---
Anesthesia Charges Start Date/Time Anesthesia Start Date: 02/15/25 Anesthesia Start Time: 09:51 Stop Date/Time Anesthesia Stop Date: 02/15/25 Anesthesia Stop Time: 12:28 Coding CPT Codes CPT Codes: ANESTH SURGERY OF SHOULDER - 21313 ([id number]) P1 - NORMAL HEALTHY PATIENT, QK - RADIOTELEPHONE TECHNICAL OPERATOR 2-4 CNCRNT ANES PROC, QX - PLATE CONDITIONER SVVenice W/ MED DIRECTION
--- NOTE | 2025-02-15 09:52 | P.ANES_ITS ---
Anesthesia Charges Start Date/Time Anesthesia Start Date: 02/15/25 Anesthesia Start Time: 09:51 Stop Date/Time Anesthesia Stop Date: 02/15/25 Anesthesia Stop Time: 12:28 Coding CPT Codes CPT Codes: ANESTH SURGERY OF SHOULDER - 67624 ([id number]) P1 - NORMAL HEALTHY PATIENT, QK - VOCATIONAL REHABILITATION COUNSELOR 2-4 CNCRNT ANES PROC, QX - HYDRAMATIC MECHANIC SVVenice W/ MED DIRECTION
[2025-02-15] MEDS: CEFAZOLIN 1 GM inj IVP (10:12)
--- NOTE | 2025-02-15 10:14 | P.ANES_ITS ---
Anesthesia Charges Start Date/Time Anesthesia Start Date: 02/15/25 Anesthesia Start Time: 09:51 Stop Date/Time Anesthesia Stop Date: 02/15/25 Coding CPT Codes CPT Codes: ANESTH SURGERY OF SHOULDER - 94731 ([id number]) P1 - NORMAL HEALTHY PATIENT, QX - PETROLEUM REFINERY LABORER MARY W/ MED DIRECTION, QY - MEDICALLY DIRECTED PETROLEUM REFINERY LABORER
--- NOTE | 2025-02-15 10:14 | W.ANESCHARGE ---
Anesthesia Charges Start Date/Time Anesthesia Start Date: 02/15/25 Anesthesia Start Time: 09:51 Stop Date/Time Anesthesia Stop Date: 02/15/25 Coding CPT Codes CPT Codes: ANESTH SURGERY OF SHOULDER - 10701 ([id number]) P1 - NORMAL HEALTHY PATIENT, QX - BRAND STRATEGIST AMRY W/ MED DIRECTION, QY - MEDICALLY DIRECTED BRAND STRATEGIST
[2025-02-15] MEDS: EPINEPHrine 1 MG in SODIUM CHLORIDE IRRIG SOLUTION 3,000 ML 9003 MG IRRIGATION ×6 (10:22→11:50)
--- NOTE | 2025-02-15 12:12 | PM.ORPRC ---
Procedure Note Date of procedure: 02/15/25 Procedure: PREOPERATIVE DIAGNOSES: 1. Right shoulder rotator cuff tear - full-thickness supraspinatus and infraspinatus with retraction to the glenoid 2. Right shoulder labral tearing 3. Right shoulder subacromial impingement syndrome. POSTOPERATIVE DIAGNOSES: 1. Right shoulder rotator cuff tear - full-thickness supraspinatus and infraspinatus with retraction to the glenoid 2. Right shoulder labral tearing 3. Right shoulder long head of biceps partial-thickness tearing 4. Right shoulder ossicle/bone anterior/superior humeral head prominence 5. Right shoulder subacromial impingement syndrome. NAME OF OPERATION: 1. Right shoulder arthroscopic rotator cuff repair - full-thickness supraspinatus/infraspinatus 2. Right shoulder arthroscopic extensive glenohumeral debridement including debridement of labral tissue, long head of the biceps tendon tissue, and humeral head bone to 3. Right shoulder arthroscopic bursectomy, subacromial decompression/partial acromioplasty. SURGEON: Noé Porras MD FAMILY SERVICE ASSISTANT: Bossman Richardson PA-C. Of note, a skilled physician's assistant was critical for this case to aide in patient positioning, suture manipulation, arm positioning, instrument positioning, and closure. ANESTHESIA: General plus preoperative supraclavicular block. EBL: 25 mL IMPLANTS: Arthrex 5.5 mm BioComposite SwiveLock suture anchor (x3); Arthrex 5.5 mm BioComposite corkscrew suture anchor (x1); Arthrex 2.6 mm standard FiberTak RC (x1) COMPLICATIONS: None evident INDICATIONS: The patient is a pleasant, 59-year-old female who has experienced right shoulder pain that has been increasing in recent time. Physical exam and imaging were consistent with a rotator cuff tear. Given their findings, as well as the weakness and pain, and inadequate response to nonoperative management, recommendation was made for surgery. FINDINGS: Exam under anesthesia revealed stable shoulder with excellent range of motion. The diagnostic arthroscopy revealed relatively healthy articular cartilage on the glenohumeral joint. The Subscapularis tendon was intact with the strong attachment at the insertion. The long head of the biceps tendon was intact with low-grade partial-thickness tearing at the superior edge of the humeral head articulation. Properly located within the bicipital groove. The superior rotator cuff tendon was found to be torn full-thickness including the supraspinatus and infraspinatus with retraction to the glenoid. It was somewhat of a reverse L-shaped type tear with the majority tendon falling posteriorly. This warranted marginal convergence sutures eventually. The labrum was torn in the anterior and superior and to some degree posterior aspects. In addition, an atypical bony prominence was seen over the anterosuperior humeral head just lateral to the bicipital groove. No loose bodies were identified within the pouch or subscapularis recess. PROCEDURE: Following a thorough discussion of risks, benefits, and alternatives, consent was obtained and the right shoulder was marked. The patient was brought to the operating room and placed supine on the operating table. Induction of anesthesia was completed after preoperative supraclavicular block was administered in preop holding. Appropriate time out was performed identifying proper patient, site, and procedure. 2 g IV Ancef was administered within 1 hour of incision preoperatively. The right upper extremity was prepped and draped in the appropriate sterile fashion using ChloraPrep prep. This was after the patient was positioned in the beach chair with their head in neutral alignment and all bony prominences well padded. The shoulder was insufflated with 20mL of normal saline via an 18g spinal needle from a posterior approach. An 11 blade skin incision allowed a blunt trochar to be inserted and diagnostic arthroscopy to be performed with the findings as noted above. An anterior portal was established with an outside in technique. This allowed the probe to be inserted and confirm the diagnostic arthroscopic findings. The shaver was then inserted and allowed debridement of the anterior and superior as well as posterior labrum. Long of the biceps also was worthy of debridement to avoid having this biceps tissue catch on the bicipital groove. Finally, this bony prominence on the humeral head was worthy to be debrided. It is possible this was related to the rotator cuff tear or somewhat of an osteophyte in this location. While these things were not appreciated initially preoperatively, there were worthy to be addressed intraoperatively in thus changing from limited to extensive glenohumeral debridement. Following this, the upper border subscapularis was probed and found to be stable. Thereafter, the subacromial space was entered. Here, a complete bursectomy and partial acromioplasty/subacromial decompression was performed with a combination of radiofrequency ablator, the shaver, and a 5.5 mm bur. Further inspection of the supraspinatus and infraspinatus rotator cuff was performed. This identified the tear as noted above. The margins of the tear were debrided, and the greater tuberosity was debrided with a combination of the apollo cautery, shaver, and bur on reverse setting. Given the reverse L-shaped type tear, a 5.5 mm corkscrew suture anchor was planned for the anteromedial row. Central medial initially was a standard 2.6 mm FiberTak, but the anchor pulled out. Thus we switched to a 5.5 mm SwiveLock suture anchor with pre-loaded tapes. We did end up re loading the 2.6 mm FiberTak in used it in the posterior medial location. The sutures were passed independently from the corkscrew anchor and eventually tied. This included marginal convergence sutures from the anterior edge of the supraspinatus tear towards the more anterior rotator interval tissue to help with reapproximation and tensioning. The biceps was avoided so as not to entrap it. The the mid and posterior medial to anchors had the tapes passed with a FiberLink and eventually were brought to a lateral row anchors. 2 lateral anchors were planned and 1 tail from each of these more medial anchors was utilized with excellent footprint compression across the greater tuberosity. It should be noted the greater tuberosity was prepared with a bur on reverse setting after extensive bursectomy and tissue mobilization to improve tissue excursion. Because of the reverse L-shaped type tear, to help us past the far posterior medial sutures a SutureLasso was utilized for this purpose. The rotator cuff showed excellent reapproximation of the greater tuberosity with good security upon probing. Prior to anchor public transit bus driver removal, the eyelet sutures were tugged on for each anchor and found that the anchor had excellent stability within the bone. The shoulder was placed through range of motion and found to be stable. The rotator cuff was re-probed and found to be stable. Instruments were removed. Excess fluid was drained, closure performed with 4-0 Monocryl and Steri-Strips. Dressings were applied. Sling was applied. The patient was awoken from anesthesia and transferred to the PACU in stable condition. A skilled physician's assistant was critical for this case to aid in patient positioning, limb positioning, skill to manipulate arthroscopic instruments and camera, suture management, patient safety, and closure. PLAN: 1. Elbow, forearm, wrist and digit range of motion as tolerated. 2. Encouraged ice. 3. Oxycodone for pain as needed. 4. Sling at all times except for ROM and showering. 5. Follow up with PA visit in 1-2 weeks for wound check. Initiate physical therapy following that visit for passive range of motion. This large tear will be worthy of a slow recovery including delaying active assisted range of motion till approximately 5 weeks. May do pendulums now.
--- NOTE | 2025-02-15 12:29 | P.ANES_ITS ---
Anesthesia Charges Start Date/Time Anesthesia Start Date: 02/15/25 Anesthesia Start Time: 09:51 Stop Date/Time Anesthesia Stop Date: 02/15/25 Anesthesia Stop Time: 12:28 Coding CPT Codes CPT Codes: ANESTH SURGERY OF SHOULDER - 92011 ([id number]) P1 - NORMAL HEALTHY PATIENT, QK - GUM ROLLING MACHINE OPERATOR 2-4 CNCRNT ANES PROC, QX - DISPOSITION CLERK SVVenice W/ MED DIRECTION
--- NOTE | 2025-02-15 12:29 | W.ANESCHARGE ---
Anesthesia Charges Start Date/Time Anesthesia Start Date: 02/15/25 Anesthesia Start Time: 09:51 Stop Date/Time Anesthesia Stop Date: 02/15/25 Anesthesia Stop Time: 12:28 Coding CPT Codes CPT Codes: ANESTH SURGERY OF SHOULDER - 22773 ([id number]) P1 - NORMAL HEALTHY PATIENT, QK - PORTER BATH 2-4 CNCRNT ANES PROC, QX - CANNON CREWMEMBER SVVenice W/ MED DIRECTION
== END 2025-02-15 14:35 | disposition home or self-care (01) ==
LOC: OR 07:55
PROVIDERS: PCP Nurse Practitioner; Visit Provider Orthopaedic Surgery Sports Medicine
PROC: (CPT 29805; principal; 2025-02-15 09:45)
DX: M75.121 Complete rotator cuff tear or rupture of right shoulder, not specified as traumatic (principal); S43.431A Superior glenoid labrum lesion of right shoulder, initial encounter; M75.41 Impingement syndrome of right shoulder; S46.111A Strain of muscle, fascia and tendon of long head of biceps, right arm, initial encounter; G89.18 Other acute postprocedural pain
CPT/HCPCS: 29827; 29826; 29823; 01630; 64415; 76942; C1713; J0171; J0690; J1100; J2250; J2405; J2704; J2795; J3010; J7120; L3670